=== PATIENT | female | born 1945 | race Caucasian/White ===

== ENCOUNTER 2020-12-26 10:01 | Emergency (ER) | payer MEDICARE, BC ==
[~2020-12-26] VITALS: Ht 165.1 cm; Wt 54.4 kg
[2020-12-26] MEDS ORDERED: SYNTHROID75 MC1 (10:11)
[2020-12-26 10:27] LABS: ABSOLUTE LYMPHOCYTES 0.4 thou/uL (0.8-5.3); ABSOLUTE MONOCYTES 0.3 thou/uL (0.0-1.2); ABSOLUTE NEUTROPHILS 3.2 thou/uL (1.6-8.1); BASOPHILS 0.6 %; HEMATOCRIT 43.4 % (37.0-47.0); HEMOGLOBIN 14.5 gm/dL (12.0-15.0); LYMPHOCYTES 10.4 %; MCH 30.6 pg (26.0-34.0); MCHC 33.3 g/dL (28.0-37.0); MCV 91.9 fL (80.0-100.0); MONOCYTES 6.6 %; MPV 7.7 fl. (7.2-11.1); NUCLEATED RBCS 0 /100WBC; PLATELET COUNT* 162 thou/uL (150-400); POLYS 82.4 %; RBC 4.73 mil/uL (4.20-5.00); RDW-CV 13.6 % (10.5-14.5); WBC 3.9 thou/uL (4.0-11.0)
[2020-12-26 11:00] LABS: CREATININE 1.1 mg/dL (0.6-1.3); POTASSIUM 4.7 mmol/L (3.5-5.1)
[2020-12-26 11:05] LABS: ALBUMIN 3.5 g/dL (3.4-5.0); TOTAL BILIRUBIN 0.5 mg/dL (<0.1-1.0); TOTAL PROTEIN 6.5 g/dL (6.4-8.2)
[2020-12-26] MEDS ORDERED: ZPAK PO (12:04)
[2020-12-26] MEDS ORDERED: DEXAMETHASONE 44 M1 PO (12:04)
[2020-12-26 12:20] VITALS: BP 118/70
--- NOTE | 2020-12-27 10:04 | EKG ---
[place] [address] ELECTROCARDIOGRAM REPORT Name: ZULEIMARON J Room: [facility]#: [id number] Admission: 12/26/20 Attend Phys: Discharge: 12/26/20 Date of : 41 Date of Service: 12/26/20 1030 Report #: [id number] THIS REPORT FOR: //name// [facility] ED Test Date: 2020-12-26 Test Time: 10:30:09 Pat Name: RON DEWEY Department: Room: Gender: Machine Icer: [facility] : 1945 Requested By: Adalid Ivory Order Number: [id number] MD: Siddharth Sanches Measurements Intervals [place] Rate: 55 P: 52 WA: 180 QRS: 45 QRSD: 112 T: 27 QT: 434 QTc: 416 Interpretive Statements Sinus rhythm Borderline intraventricular conduction delay No previous ECG available for comparison Electronically Signed On 12-27-2020 10:03:57 CDT by Siddharth Sanches [email or web address] <ELECTRONICALLY SIGNED> By: Siddharth Sanches MD, [facility] 12/27/20 1003 1030 1030 Siddharth Sanches MD, FACC /EPI
== END 2020-12-26 12:23 | disposition home or self-care (01) ==
LOC: M.ERS 10:01
PROVIDERS: Family Medicine
DX: U07.1 COVID-19 (principal); E03.9 Hypothyroidism, unspecified